=== PATIENT | female | born 1970 | race African-American/Black ===

== ENCOUNTER 2018-08-31 05:09 | Inpatient (IN) | payer OTHER ==
[2018-08-20 15:09] VITALS: BMI 21.7
[~2018-08-31 05:09] MED LIST: BUPIVACAINE HCL/PF (5 MG/ML) 30 ML VIAL IJ ONE
[2018-08-31] MEDS ORDERED: fentaNYL CITRATE 250 MCG/5 ML VIAL ONE (07:32)
[2018-08-31] MEDS ORDERED: ePHEDrine SULFATE 50 MG/1 ML AMPULE ONE (07:32)
[2018-08-31] MEDS ORDERED: ROCURONIUM BROMIDE 50 MG/5 ML VIAL ONE ×2 (07:33)
[2018-08-31] MEDS ORDERED: PROPOFOL 20 ML ONE ×4 (07:33)
[2018-08-31] MEDS ORDERED: MIDAZOLAM HCL 2 MG/2 ML SINGLE DOSE VIAL ONE (07:33)
[2018-08-31] MEDS ORDERED: BUPIVACAINE HCL/PF 0.5% (5MG/ML) 10 ML VIAL ONE (07:41)
[2018-08-31] MEDS ORDERED: IBUPROFEN 800 MG/8 ML IJ IVPB PRN (08:05)
--- NOTE | 2018-08-31 08:05 | HP ---
History & Physical Update - History History: No Change - Physical Physical: No Change - Assessment Assessment: No Change - Plan Plan: No Change
[2018-08-31] MEDS ORDERED: LACTATED RINGERS SOLUTION 1,000 ML IV SCH (08:15)
[2018-08-31] MEDS ORDERED: PHENAZOPYRIDINE HCL 100 MG TABLET (FP) PO ONE (08:19)
[2018-08-31] MEDS ORDERED: ceFAZolin SODIUM 1 GM VIAL IVPB ONE (08:40)
[2018-08-31] MEDS ORDERED: ceFAZolin SODIUM 1 GM VIAL ONE (10:10)
[2018-08-31] MEDS ORDERED: DEXAMETHASONE SOD PHOSPHATE 4 MG/1 ML VIAL ONE (10:10)
[2018-08-31] MEDS ORDERED: KETOROLAC TROMETHAMINE 30 MG/1 ML VIAL ONE (10:10)
[2018-08-31] MEDS ORDERED: LIDOCAINE HCL/PF 2% SDV 5ML VIAL ONE (10:10)
[2018-08-31] MEDS ORDERED: BUPIVACAINE HCL/PF (5 MG/ML) 30 ML VIAL IJ ONE (10:19)
--- NOTE | 2018-08-31 10:34 | OP ---
Operative Note - Note: Operative Date: 08/31/18 Pre-Operative Diagnosis: Vaginal bleeding, elective sterilization Operation: Robotic hysterectomy with bilateral salpingectomy Post-Operative Diagnosis: Same as Pre-op Surgeon: Neyda Reed [employer] Faculty Member: Gerardo Martines Anesthesiologist/MEDICAL TRANSCRIPTION: Heri Mckinley Anesthesia: General Specimens Removed: Uterus, cervix, bilateral tubes Estimated Blood Loss (mls): 50 Drains, Volume Out (mls): 100 (gr) Fluid Volume Replaced (mls): 1,000 Operative Report Dictated: Yes
--- NOTE | 2018-08-31 10:35 | SURG ---
Surgery Market Survey Representative Note Market Survey Representative: Gerardo Martines PA-C Date of Service: 08/31/18 Diagnosis: Vaginal bleeding Procedure: Robotic hysterectomy with bilateral salpingectomy I was present for the entirety of the operative procedure. For further detail, please refer to operative report. Visit type - Case Type Case Type: Scheduled - New patient This patient is new to me today: Yes Date on this admission: 08/31/18
[2018-08-31] MEDS ORDERED: oxyCODONE HCL 5 MG TABLET PO PRN ×2 (10:55)
[2018-08-31] MEDS ORDERED: oxyCODONE HCL 10 MG SUSTAINED ACTING TABLET PO SCH (11:00)
[2018-08-31] MEDS ORDERED: HYDROmorphone *PCA* 10MG/50ML DISP.SYRIN PCA SCH (12:15)
[2018-08-31] MEDS ORDERED: ZOLPIDEM TARTRATE 5 MG TABLET PO PRN (14:01)
[2018-08-31] MEDS: ONDANSETRON 4 MG/2 ML VIAL IVPUSH PRN (15:42)
[2018-08-31] MEDS: CEFAZOLIN 2 GM/D5W 2 GM/50 ML ML IVPB SCH ×2 (17:58→20:53)
[2018-08-31 20:07] LABS: CALCIUM 8.5 mg/dL (8.5-10.1); CREATININE 0.6 mg/dL (0.55-1.3); POTASSIUM 4.3 mmol/L (3.5-5.1)
[2018-08-31 22:05] LABS: HEMATOCRIT 35.3 % (32.4-45.2); HEMOGLOBIN 11.3 GM/dL (10.7-15.3); MCH 27.8 pg (25.7-33.7); MCHC 31.9 g/dl (32.0-36.0); MEAN CELL VOLUME 87.2 fl (80-96); MEAN PLT VOLUME 8.2 fl (7.5-11.1); PLATELET COUNT 249 K/MM3 (134-434); RBC 4.05 M/mm3 (3.60-5.2); RDW 14.9 % (11.6-15.6); WHITE BLOOD COUNT 7.7 K/mm3 (4.0-10.0)
[2018-08-31] MEDS: ACETAMINOPHEN 325 MG TABLET (FP) PO SCH (22:58)
[2018-09-01] MEDS: ACETAMINOPHEN 325 MG TABLET (FP) PO SCH ×5 (05:37→23:17)
[2018-09-01] MEDS ORDERED: PCA PUMP KEY 1 EACH EACH ONE ×2 (07:47→08:52)
[2018-09-01 08:05] LABS: BASO % 0.3 % (0-2.0); EOS % 0.1 % (0-4.5); HEMATOCRIT 32.9 % (32.4-45.2); HEMOGLOBIN 10.7 GM/dL (10.7-15.3); LYMPH % 22.1 % (8-40); MCH 28.1 pg (25.7-33.7); MCHC 32.4 g/dl (32.0-36.0); MEAN CELL VOLUME 86.7 fl (80-96); MONO % 10.6 % (3.8-10.2); NEUT % 66.9 % (42.8-82.8); PLATELET COUNT 251 K/MM3 (134-434); RBC 3.79 M/mm3 (3.60-5.2); RDW 14.9 % (11.6-15.6)
[2018-09-01] MEDS: ONDANSETRON 4 MG/2 ML VIAL IVPUSH PRN (08:45)
[2018-09-01] MEDS ORDERED: oxyCODONE HCL 5 MG TABLET PO PRN (09:13)
[2018-09-01] MEDS ORDERED: morphine CARPU-JECT 4 MG/1 ML DISP.SYRIN IVPUSH PRN (09:19)
[2018-09-01] MEDS ORDERED: morphine SULFATE 4 MG/ML VIAL IVPUSH PRN (09:58)
[2018-09-01] MEDS ORDERED: MORPHINE SULFATE 2 MG/ML VIAL IVPUSH PRN (10:00)
[2018-09-01] MEDS: ENOXAPARIN NA (PORCINE) 30 MG/0.3 ML DISP.SYRIN SQ SCH (10:06)
--- NOTE | 2018-09-01 10:32 | PN ---
Progress Note (short form) - Note Progress Note: 48yo F s/p Robotic assisted hysterectomy POD 1, pt seen and examined at bedside. Pt complaining of significant abd pain. Denies fever, chills. Admits some nausea but no vomiting. PT had gr out this AM and is urinating well. Pt tolerating PO. Last Vital Signs Temp Pulse Resp BP Pulse Ox 98.1 F 75 18 109/59 L 96 09/01/18 05:40 09/01/18 05:40 09/01/18 05:40 09/01/18 05:40 08/31/18 22:00 CBC, BMP 09/01/18 07:30 08/31/18 18:30 PE: Gen: A&O x3 Resp: breathing comfortably Abd: soft, nondistended, moderate diffuse abd tenderness, dressing clean with no erythema or discharge. Ext: no edema Problem List - Problems (1) Status post hysterectomy Assessment/Plan: Plan -pt appears stable will change pain medications to PO as pt complains [employer] makes her too groggy. -OOB/ambulate -DVT ppx -will reevaluate this afternoon and see if pain is better controlled for discharge. Code(s): Z90.710 - ACQUIRED ABSENCE OF BOTH CERVIX AND UTERUS
--- NOTE | 2018-09-01 11:52 | OP ---
DATE OF OPERATION: 08/31/2018 PREOPERATIVE DIAGNOSIS: Leiomyomatous uterus, adenomyosis, abnormal uterine bleeding and elective sterilization. OPERATION: Robotic laparoscopic total hysterectomy and bilateral salpingectomy. POSTOPERATIVE DIAGNOSIS: Leiomyomatous uterus, adenomyosis, abnormal uterine bleeding and elective sterilization. SURGEON: Cedric Bradley MD DIRECTOR INDUSTRIAL NURSING: KALI Cosby ANESTHESIOLOGIST: Heri Mckinley CRNA ESTIMATED BLOOD LOSS: 50 mL PROCEDURE IN DETAIL: Patient was taken to the operating room, placed in the dorsal lithotomy position, prepped and draped in the usual sterile fashion. Timeout was performed in accordance with hospital regulation. Attention was then drawn to the vagina where a speculum was placed in the vagina. Anterior lip of the cervix was grasped with single-tooth tenaculum. Cervix was then dilated and uterine manipulator was then inserted. Omalley catheter was then inserted into the bladder. After uterine manipulator confirmed, attention was then drawn to the abdomen where an 8 mm umbilical incision was made. Veress needle was inserted into the cavity. Approximately 3 to 4 L of CO2 were insufflated in the cavity. Veress needle was then removed and an 8-mm trocar was then inserted. Laparoscope and camera attached. Visualization revealed adenomyosis and leiomyomatous uterus, and tubes were noted to be normal. Ovaries were also normal. Two trocars were placed on the left side, one in the upper abdomen. A 5 mm incision was made in the upper abdomen. An AirSeal cannula was inserted under direct visualization. Eight cm parallel to the umbilical incision a left 8 mm incision was made and trocar was inserted. Two trocars were then placed on the right side 8 cm apart from the umbilical incision. Incision was made and trocar was then inserted. Da Elvis robot was then side docked to the patient's bedside. Trocars were then inserted. The vessel sealer was placed on the left and the tenaculum and the Endo Sarina were placed on the right. Tenaculum and all instruments were confirmed in view prior to going to the console. Control of the console was then done. Tenaculum was then used to elevate the uterus and tilt the uterus to the right side. The vessel sealer was then used to cut the uterine ovarian ligament and the round ligament. Coagulation and cutting were then performed. Uterine arteries were identified and clamped and cut. Cardinal ligament was identified and clamped and cut down to the level of the cervix. After this the vesicouterine reflection had been entered and the bladder was bluntly and sharply dissected out of the operative field. The Endo Sarina was then used to enter the vagina. The same procedure was repeated on the right side. The tenaculum was then used to elevate the uterus to the left side. The uterine ovarian ligament was identified and clamped and cut. Uterine arteries were identified and clamped and cut. Vesicouterine reflection was then entered and bluntly dissected out of the operative field. Endo Sarina were then used to cut the vagina away from the cervix. After the cervix and vagina were totally severed, attention was then drawn to the vagina where the cervix was grasped and removed from the vagina, uterus and cervix removed. Bilateral salpingectomy was performed using the vessel sealer and left and right portions of tubes were removed. Patient had had a tubal ligation prior to the procedure. The 2-0 V-Loc suture was then passed into the abdomen and the da Elvis robot was used to close the vaginal cuff in a continuous fashion. After vagina had been closed, the needle was removed and hemostasis was achieved. Both ureters identified and found to have peristalsis. The trocars were then removed from the abdomen. CO2 was removed from the abdomen. The incisions were then closed using 40- Biosyn suture. Wound was washed and dressed. Patient tolerated procedure well, was taken to recovery in stable condition. Estimated blood loss was 50 mL. CEDRIC BRADLEY M.D. [id number]
[2018-09-01] MEDS ORDERED: diazePAM 5 MG TABLET PO PRN (16:53)
--- NOTE | 2018-09-01 17:39 | PATH ---
Surgical Pathology Report Patient Name: JASON COBURN [facility]. Rec. #: [id number] /Age/Gender: 1970 (Age: 48) / F Account: [id number] Location: [facility] OBS/CAR SHIFTER Taken: 08/31/2018 Received: 08/31/2018 Reported: 09/01/2018 Physicians: Neyda Reed M.D. Specimen(s) Received A: UTERUS AND CERVIX B: RIGHT FALLOPIAN TUBE C: LEFT FALLOPIAN TUBE Clinical History Menorrhagia, fibroid, adenomyosis Final Diagnosis A. CERVIX AND UTERUS, HYSTERECTOMY: ADENOMYOSIS. LEIOMYOMA. SECRETORY TYPE ENDOMETRIUM. CERVIX WITH SQUAMOUS METAPLASIA. B. RIGHT FALLOPIAN TUBE, RESECTION: PORTION OF FALLOPIAN TUBE WITH NO SIGNIFICANT PATHOLOGIC CHANGE. C. LEFT FALLOPIAN TUBE, RESECTION: PORTION OF FALLOPIAN TUBE WITH NO SIGNIFICANT PATHOLOGIC CHANGE Electronically Signed Shawn Pleitez M.D. Gross Description A. Received in formalin labeled "cervix, uterus," is a 216 g uterus with an attached cervix. No tubes or ovaries present. The specimen measures 11 cm from superior to inferior, 8.1 cm from anterior to posterior, and 5 cm from left to right. The serosa is machuca-pink and smooth. The attached cervix measures 4 cm in length and averages 3.1 cm in diameter. The ectocervix is machuca-pink, smooth and glistening. The endocervix is unremarkable. The endometrial cavity measures 6.5 cm in length and 1.0 cm from cornu to cornu. The endometrium is machuca-red and measures up to 0.2 cm in thickness. The myometrium displays focal thickened change measuring 4 cm in greatest thickness. One intramural nodule measuring 1.5 cm in greatest dimension is present. The cut surface of the nodule is machuca and rubbery with whorled architecture. No necrosis, discoloration, or hemorrhage present. The remaining myometrium is machuca-pink and measures up to 2.0 cm in thickness. Director Of Physician Practices sections are submitted in 12 cassettes as follows: 1-2: anterior cervix; 3-4- posterior cervix; 5- anterior endometrium with thickened myometrium; 6- anterior endomyometrium with serosa; 7 and 8: posterior endometrium; 9: intramural nodule;[id number] sections from thickened myometrium. B. Received in formalin labelled "right fallopian tube" is a 2 cm long by 0.5 cm in diameter portion of tissue consistent with a portion of fallopian tube with a fimbriated end. Separates one portion of fallopian tube measuring 1.5 cm and up to 1 cm in diameter is also present. The specimen is sectioned and totally submitted in 2 cassettes. C. Received in formalin labelled "left fallopian tube" is a 1.5cm long by 0.5 cm in diameter portion of tissue consistent with a portion of fallopian tube with a fimbriated end. Separates one portion of fallopian tube measuring 1.0 cm and up to 1 cm in diameter is also present. The specimen is sectioned and totally submitted in 1 cassette. _ PILO/08/31/2018 abhilash/08/31/2018
[2018-09-01] MEDS: IBUPROFEN 800 MG/8 ML IJ IVPB PRN (21:05)
[2018-09-01 22:34] VITALS: TEMP 98.2
[2018-09-02] MEDS: IBUPROFEN 800 MG/8 ML IJ IVPB PRN ×2 (03:09→09:15)
[2018-09-02] MEDS: ACETAMINOPHEN 325 MG TABLET (FP) PO SCH ×3 (05:06→11:02)
[2018-09-02] MEDS: oxyCODONE HCL 5 MG TABLET PO PRN ×2 (06:33→09:27)
[2018-09-02] MEDS: ENOXAPARIN NA (PORCINE) 30 MG/0.3 ML DISP.SYRIN SQ SCH (09:15)
--- NOTE | 2018-09-02 10:18 | DS ---
Physical Exam: SUBJECTIVE: Patient seen and examined OBJECTIVE: Vital Signs Temperature 98.2 F 09/01/18 22:00 Pulse Rate 72 09/01/18 22:00 Respiratory Rate 18 09/01/18 22:00 Blood Pressure 139/79 09/01/18 22:00 O2 Sat by Pulse Oximetry (%) 96 09/01/18 09:00 PHYSICAL EXAM GENERAL: The patient is awake, alert, and fully oriented, in no acute distress. HEAD: Normal with no signs of trauma. EYES: PERRL, extraocular movements intact, sclera anicteric, conjunctiva clear. ENT: Ears normal, nares patent, oropharynx clear without exudates, moist mucous membranes. NECK: Trachea midline, full range of motion, supple. ABDOMEN: Soft, nontender, nondistended, normoactive bowel sounds, no guarding, no rebound, no hepatosplenomegaly, no masses. EXTREMITIES: warm, well-perfused, no edema. NEUROLOGICAL: Cranial nerves II through XII grossly intact. Normal speech, gait not observed. PSYCH: Normal mood, normal affect. SKIN: Warm, dry, normal turgor, no rashes or lesions noted. LABS CBC,CMP WBC 9.0 K/mm3 (4.0-10.0) 09/01/18 07:30 RBC 3.79 M/mm3 (3.60-5.2) 09/01/18 07:30 Hgb 10.7 GM/dL (10.7-15.3) 09/01/18 07:30 Hct 32.9 % (32.4-45.2) 09/01/18 07:30 MCV 86.7 fl (80-96) 09/01/18 07:30 MCH 28.1 pg (25.7-33.7) 09/01/18 07:30 MCHC 32.4 g/dl (32.0-36.0) 09/01/18 07:30 RDW 14.9 % (11.6-15.6) 09/01/18 07:30 Plt Count 251 K/MM3 (134-434) 09/01/18 07:30 MPV 8.0 fl (7.5-11.1) 09/01/18 07:30 Absolute Neuts (auto) 6.0 K/mm3 (1.5-8.0) 09/01/18 07:30 Neutrophils % 66.9 % (42.8-82.8) D 09/01/18 07:30 Lymphocytes % 22.1 % (8-40) D 09/01/18 07:30 Monocytes % 10.6 % (3.8-10.2) H 09/01/18 07:30 Eosinophils % 0.1 % (0-4.5) D 09/01/18 07:30 Basophils % 0.3 % (0-2.0) 09/01/18 07:30 Nucleated RBC % 0 % (0-0) 09/01/18 07:30 Sodium 136 mmol/L (136-145) 08/31/18 18:30 Potassium 4.3 mmol/L (3.5-5.1) 08/31/18 18:30 Chloride 104 mmol/L (98-107) 08/31/18 18:30 Carbon Dioxide 26 mmol/L (21-32) 08/31/18 18:30 Anion Gap 7 MMOL/L (8-16) L 08/31/18 18:30 BUN 9 mg/dL (7-18) 08/31/18 18:30 Creatinine 0.6 mg/dL (0.55-1.3) 08/31/18 18:30 Est GFR (CKD-EPI)AfAm 124.05 08/31/18 18:30 Est GFR (CKD-EPI)NonAf 107.03 08/31/18 18:30 Random Glucose 134 mg/dL (74-106) H 08/31/18 18:30 Calcium 8.5 mg/dL (8.5-10.1) 08/31/18 18:30 Serum , Qual Negative 08/31/18 06:15 HOSPITAL COURSE: 48yo F presented to the hospital for planned robotic assisted hysterectomy for fibroid uterus. Pt tolerated the procedure well with no complications and minimal bleeding. Pt was admitted for pain management and observation. While in the hospital the pt had no acute events. Pt currently has abd pain well controlled. Pt is tolerating PO and urinating well. Pt will be discharged home with follow up with Dr. Reed in 1 week. Date of Admission:09/01/18 Date of Discharge: 09/02/18 Minutes to complete discharge: 20 Visit type - Case Type Case Type: Scheduled - Emergency Emergency Visit: No - New patient This patient is new to me today: No - Critical Care Critical Care patient: No
[2018-09-02 10:33] VITALS: BP 134/80; PULSE 78
== END 2018-09-02 13:30 | disposition home or self-care (01) | DRG 743 ==
LOC: JASUSAT 05:09 → J3W 13:48 → JASUSAT 09-01 15:20 → J3W 09-01 15:23
PROVIDERS: ADMIT Obstetrics & Gynecology; ATTEND Obstetrics & Gynecology
PROC: 8E0W4CZ Robotic Assisted Procedure of Trunk Region, Percutaneous Endoscopic Approach (ICD-10-PCS; 2018-08-31)
PROC: 0UT74ZZ Resection of Bilateral Fallopian Tubes, Percutaneous Endoscopic Approach (ICD-10-PCS; principal; 2018-08-31 08:00)
PROC: 0UT94ZZ Resection of Uterus, Percutaneous Endoscopic Approach (ICD-10-PCS; 2018-08-31 08:00)
DX: N93.9 Abnormal uterine and vaginal bleeding, unspecified (principal); Z30.2 Encounter for sterilization; D25.9 Leiomyoma of uterus, unspecified; N80.0 Endometriosis of uterus
CPT/HCPCS: 36415; 80048; 84703; 85025; 85027; 86850; 86900; 86901; 88302-TC; 88307-TC; 94760

== ENCOUNTER 2023-11-11 05:55 | Emergency (ER) | payer OTHER ==
[2023-11-11 06:13] VITALS: RESP 18; BMI 30.7
[2023-11-11] MEDS ORDERED: ACETAMINOPHEN 325 MG TABLET (FP) ONE (07:43)
[2023-11-11] MEDS: ACETAMINOPHEN 500 MG TABLET (FP) PO ONE (08:04)
[2023-11-11 09:16] VITALS: BP 149/80; PULSE 70; TEMP 97.5
[2023-11-11] MEDS ORDERED: KETOROLAC TROMETHAMINE 15 MG/ML VIAL ONE (10:45)
[2023-11-11] MEDS: KETOROLAC TROMETHAMINE 30 MG/1 ML VIAL IM ONE (10:49)
== END 2023-11-11 11:00 | disposition home or self-care (01) ==
LOC: JER 05:55
PROC: 3E0133Z Introduction of Anti-inflammatory into Subcutaneous Tissue, Percutaneous Approach (ICD-10-PCS; principal; 2023-11-11)
DX: M79.631 Pain in right forearm (principal); M25.511 Pain in right shoulder; M79.642 Pain in left hand; M25.562 Pain in left knee; V77.6XXA Passenger on bus injured in collision with fixed or stationary object in traffic accident, initial encounter
CPT/HCPCS: 70450-TC; 72125-TC; 73030-TC-RT-FY; 73060-TC-RT-FY; 73130-TC-LT-FY; 73562-TC-LT-FY; 99284-25